=== PATIENT | male | born 1970 | race American Indian/Alaskan Native ===

== ENCOUNTER 2017-03-30 20:59 | Emergency (ER) | payer MEDICARE ==
[2017-03-30 21:48] VITALS: RESP 20; TEMP 98
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
[2017-03-30 23:14] VITALS: BP 108/73; PULSE 67; O2SAT 100
--- NOTE | 2017-03-31 09:48 | RAD ---
PROCEDURE: Right Knee Radiographs. HISTORY: Pain COMPARISON: None. FINDINGS: BONES: Bone alignment and mineralization are normal. There is no acute displaced fracture or bone destruction. JOINTS: There is mild tricompartmental degenerative osteoarthrosis with mild reduced joint spaces and tibial spiking, worse in the medial compartment. There is a small suprapatellar joint effusion JOINT EFFUSION: None. OTHER FINDINGS: None. IMPRESSION: No acute fracture or dislocation. Mild tricompartmental degenerative osteoarthrosis, worse in the medial compartment. Small suprapatellar joint effusion.
== END 2017-03-30 23:18 | disposition home or self-care (01) ==
LOC: C.ER 20:59
DX: M17.11 Unilateral primary osteoarthritis, right knee (principal); M25.561 Pain in right knee

== ENCOUNTER 2017-11-21 00:33 | Emergency (ER) | payer MEDICARE ==
[2017-11-21 00:53] VITALS: RESP 18; TEMP 97.9; O2SAT 99
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
[2017-11-21 02:26] VITALS: BP 138/76; PULSE 79
== END 2017-11-21 02:26 | disposition home or self-care (01) ==
LOC: SUPCPDRO 00:33 → C.ER 00:33
DX: L25.9 Unspecified contact dermatitis, unspecified cause (principal)